=== PATIENT | female | born 1950 ===

== ENCOUNTER 2021-12-16 06:00 | Outpatient (RCR) | payer MEDICARE, SELFPAY | END 2022-01-15 23:59 | disposition home or self-care (01) | LOC: SPT 06:00 | PROVIDERS: Referring Provider Internal Medicine Rheumatology; Visit Provider Internal Medicine Rheumatology | DX: M16.9 Osteoarthritis of hip, unspecified (principal) | CPT/HCPCS: 97110; 97161; 97530 ==

== ENCOUNTER 2022-01-16 06:00 | Outpatient (RCR) | payer MEDICARE, SELFPAY | END 2022-02-15 23:59 | disposition home or self-care (01) | LOC: SPT 06:00 | PROVIDERS: Visit Provider Internal Medicine Rheumatology | DX: M16.9 Osteoarthritis of hip, unspecified (principal) | CPT/HCPCS: 97110 ==